=== PATIENT | male | born 1990 | race American Indian/Alaskan Native ===

== ENCOUNTER 2019-12-18 02:14 | Emergency (ER) | payer SELFPAY ==
[2019-12-18 02:26] VITALS: BP 125/67
--- NOTE | 2019-12-18 05:17 | Emergency Department Report ---
ED General Adult HPI - General Chief complaint: Skin/Abscess/Foreign Body Stated complaint: SORES UNDER BILATERAL ARMS Time Seen by Provider: 12/18/19 04:07 Source: patient Mode of arrival: Ambulatory Limitations: No Limitations - History of Present Illness Initial comments: Patient complains of recurrent abscesses in his armpits for the past 2 months. He denies any current pain or drainage from the lesions, however states the keep recurring after they drain. He denies any fever/chills/sweats, diagnosis of hidradenitis suppurativa, or history of diabetes. -: Gradual, month(s) - Related Data Previous Rx's Medication Instructions Recorded Last Taken Type Clindamycin Phosphate [Cleocin T 60 ml TP BID 30 Days #1 bottle 12/18/19 Unknown Rx 1% TOPICAL SOLN] Allergies Allergy/AdvReac Type Severity Reaction Status Date / Time No Known Allergies Allergy Unverified 12/18/19 02:26 ED Review of Systems ROS: Stated complaint: SORES UNDER BILATERAL ARMS Other details as noted in HPI Constitutional: denies: chills, diaphoresis, fever, malaise, weakness Respiratory: denies: cough Cardiovascular: denies: chest pain Gastrointestinal: denies: nausea, vomiting Skin: lesions. denies: change in color, pruritus Hematological/Lymphatic: denies: swollen glands ED Past Medical Hx - Past Medical History Previous Medical History?: No - Surgical History Past Surgical History?: No - Social History Smoking Status: Never Smoker Substance Use Type: Marijuana - Medications Home Medications: Home Medications Medication Instructions Recorded Confirmed Last Taken Type Clindamycin Phosphate [Cleocin T 60 ml TP BID 30 Days #1 bottle 12/18/19 Unknown Rx 1% TOPICAL SOLN] ED Physical Exam - General Limitations: No Limitations General appearance: alert, in no apparent distress - Head Head exam: Present: atraumatic, normocephalic - Eye Eye exam: Present: normal appearance. Absent: scleral icterus - Respiratory Respiratory exam: Present: normal lung sounds bilaterally. Absent: respiratory distress - Cardiovascular Cardiovascular Exam: Present: regular rate, normal rhythm - Extremities Exam Extremities exam: Present: normal inspection - Neurological Exam Neurological exam: Present: alert, oriented X3, normal gait - Psychiatric Psychiatric exam: Present: normal affect, normal mood - Skin Skin exam: Present: warm, dry, intact, normal color, other (Skin scarring and multiple small to moderate sized indurated nodules without fluctuance, erythema, or drainage noted; lesions are nontender to palpation). Absent: rash ED Course Vital Signs 12/18/19 02:24 Temperature 98.4 F Pulse Rate 80 Respiratory 18 Rate Blood Pressure 125/67 O2 Sat by Pulse 99 Oximetry ED Medical Decision Making - Medical Decision Making Patient complains of recurrent abscesses in his armpits for the past 2 months. Exam is consistent with hidradenitis suppurativa. Prescription for topical clindamycin given. Recommend patient follows up with dermatology for further evaluation and treatment. His vitals are normal, he is well-appearing, stable for discharge home. Strict return precautions were discussed in detail with patient who verbalized understanding. Critical care attestation.: If time is entered above; I have spent that time in minutes in the direct care of this critically ill patient, excluding procedure time. ED Disposition Clinical Impression: Hidradenitis suppurativa Disposition: DC-01 TO HOME OR SELFCARE Is pt being admited?: No Condition: Stable Instructions: Abscess Incision and Drainage (ED) Prescriptions: Clindamycin Phosphate [Cleocin T 1% TOPICAL SOLN] 60 ml TP BID 30 Days #1 bottle Referrals: MARTITA EDMONDSON MD [Staff Physician] - 3-5 Days
== END 2019-12-18 05:45 | disposition home or self-care (01) ==
LOC: ED 02:14
DX: L73.2 Hidradenitis suppurativa (principal); F12.90 Cannabis use, unspecified, uncomplicated; Z79.899 Other long term (current) drug therapy
CPT/HCPCS: 99282